=== PATIENT | female | born 2000 | race Caucasian/White ===

== ENCOUNTER 2018-09-05 21:47 | Emergency (ER) | payer BC ==
[2018-09-05] MEDS ORDERED: ONDANSETRON 4 MG/2 ML VIAL IVP ONE (22:41)
[2018-09-05] MEDS ORDERED: NS 1,000 ML IV ONE ×2 (22:41→23:02)
--- NOTE | 2018-09-05 22:44 | EDPHY ---
H & P Stated Complaint: epigatric [id number] Time Seen by Provider: 09/05/18 22:43 HPI/ROS: HPI CHIEF COMPLAINT: Nausea vomiting. HISTORY OF PRESENT ILLNESS: Patient is a 18-year-old female presents to the emergency room by private vehicle for nausea vomiting. Patient states she has been vomiting continuously for the past 2 days. She states this started after drinking large amount of alcohol 6 alcoholic beverages 2 days ago and started having nausea vomiting and the symptoms have persisted. Denies any significant pain. Does have some mild epigastric discomfort. Denies chest pain or shortness of breath. Denies headache or neck pain. Denies fever. Denies diarrhea or bloody stools. Denies black tarry stools. Past Medical History: Diagonal disease. Past Surgical History: Denies significant surgical history Social History: [employer] student, denies drug use. Alcohol over the past 2 days. Family History: Noncontributory ROS REVIEW OF SYSTEMS: 10 Systems were reviewed and negative with the exception of the elements mentioned in the history of present illness. Exam Constitutional nontoxic no acute distress triage nursing summary reviewed, vital signs reviewed, awake/alert. Eyes normal conjunctivae and sclera, EOMI, PERRLA. HENT normal inspection, atraumatic, moist mucus membranes, no epistaxis, neck supple/ no meningismus, no raccoon eyes. Respiratory clear to auscultation bilaterally, normal breath sounds, no respiratory distress, no wheezing. Cardiovascular rate normal, regular rhythm, no murmur, no edema, distal pulses normal. Gastrointestinal soft, non-tender, no rebound, no guarding, normal bowel sounds, no distension, no pulsatile mass. Genitourinary no CVA tenderness. Musculoskeletal no midline vertebral tenderness, full range of motion, no calf swelling, no tenderness of extremities, no meningismus, good pulses, neurovascularly intact. Skin pink, warm, & dry, no rash, skin atraumatic. Neurologic awake, alert and oriented x 3, AAOx3, moves all 4 extremities equally, motor intact, sensory intact, CN II-XII intact, normal cerebellar, normal vision, normal speech. Psychiatric normal mood/affect. Heme/Lymph/Immune no lymphadenopathy. Differential Diagnosis: Differential diagnosis includes but is not limited to and in no particular order: Bowel obstruction, appendicitis, gallbladder disease, diverticulitis, colitis, enteritis, perforated viscus, gastritis, GERD , esophagitis, urinary tract infection, pyelonephritis, kidney stones Medical Decision Making: Plan for this patient IV establishment with IV fluid bolus, IV Zofran for nausea, IV Pepcid 20 mg for GI upset, basic labs and re- evaluate. Re-evaluation: 0404: Patient re-examined at this time. Feeling much better after IV fluids nausea medicine and Pepcid. She was able to p. O. Challenge without any difficulty. On re-examination her abdomen is soft nontender. She is not vomiting. She p.o. Challenge well. Ultrasound reviewed of the right upper quadrant this was faxed to me by [facility] at 1:00 a.m.. This shows a pattern megaly without intrahepatic biliary duct dilatation or focal mass. Portal vein is patent with better pedal flow unremarkable right upper quadrant ultrasound otherwise. No gallstones. No wall thickening. No pericholecystic fluid. I went over the patient's ultrasound and lab work with her. I also discussed return precautions with her return emergency room if worsening abdominal pain, fever, vomiting. Additionally I do recommend she follows up with Gastroenterology about her elevated bilirubin, and hepatomegaly Seen on ultrasound. She is comfortable this plan. Additionally she understands return emergency room she develops worsening abdominal pain, fever, vomiting Patient also reports to me that she has Gilbert's Disease. This explains her elevated bilirubin. Pattern mainly seen on ultrasound do recommend she follows up with Gastroenterology. This been discussed with her. Source: Patient - Personal History LMP (Females 10-55): IUD In Place Current Tetanus Diphtheria and Acellular Pertussis (TDAP): Yes - Medical/Surgical History Hx Asthma: No Hx Chronic Respiratory Disease: No Hx Diabetes: No Hx Cardiac Disease: No Hx Renal Disease: No Hx Cirrhosis: No Hx Alcoholism: No Hx HIV/AIDS: No Hx Splenectomy or Spleen Trauma: No Other PMH: denies - Social History Smoking Status: Never smoked Constitutional: Initial Vital Signs Temperature (C) 37.1 C 09/05/18 22:03 Heart Rate 100 09/05/18 22:03 Respiratory Rate 18 09/05/18 22:03 Blood Pressure 125/86 H 09/05/18 22:03 O2 Sat (%) 99 09/05/18 22:03 O2 Delivery Mode Room Air Allergies/Adverse Reactions: No Known Allergies Allergy (Unverified 09/05/18 22:03) Home Medications: Medication Instructions Recorded Promethazine HCl 25 mg PO Q6-8PRN PRN #10 tablet 09/05/18 Medical Decision Making - Data Points Laboratory Results: Laboratory Results 09/05/18 22:40 09/05/18 22:40 09/06/18 09/06/18 09/06/18 01:37 00:30 00:30 WBC RBC Hgb Hct MCV MCH MCHC RDW Plt Count MPV Neut % (Auto) Lymph % (Auto) [place] % (Auto) Eos % (Auto) Baso % (Auto) Nucleat RBC Rel Count Absolute Neuts (auto) Absolute Lymphs (auto) Absolute Monos (auto) Absolute Eos (auto) Absolute Basos (auto) Absolute Nucleated RBC Immature Gran % Immature Gran # Sodium Potassium Chloride Carbon Dioxide Anion Gap BUN Creatinine Estimated GFR Glucose Calcium Total Bilirubin Conjugated Bilirubin Unconjugated Bilirubin AST ALT Alkaline Phosphatase Total Protein Albumin Lipase Beta HCG, Qual Urine Color YELLOW YELLOW Urine Appearance HAZY MODERATELY TURBID Urine pH 6.0 7.0 (5.0-7.5) (5.0-7.5) Ur Specific [place] 1.020 1.026 (1.002-1.030) (1.002-1.030) Urine Protein NEGATIVE 1+ H (NEGATIVE) (NEGATIVE) Urine Ketones 2+ H 2+ H (NEGATIVE) (NEGATIVE) Urine Blood NEGATIVE NEGATIVE (NEGATIVE) (NEGATIVE) Urine Nitrate NEGATIVE NEGATIVE (NEGATIVE) (NEGATIVE) Urine Bilirubin NEGATIVE NEGATIVE (NEGATIVE) (NEGATIVE) Urine Urobilinogen NEGATIVE EU EU NEGATIVE EU EU (0.2-1.0) (0.2-1.0) Ur Leukocyte Esterase NEGATIVE TRACE H (NEGATIVE) (NEGATIVE) Urine RBC 3-5 /hpf H /hpf (0-3) Urine WBC 5-10 /hpf H /hpf (0-3) Ur Epithelial Cells 4+ /lpf H /lpf (NONE-1+) Urine Bacteria TRACE /hpf H /hpf (NONE SEEN) Urine Mucus 4+ /lpf H /lpf (NONE-1+) Urine Glucose NEGATIVE NEGATIVE (NEGATIVE) (NEGATIVE) Urine Opiates Screen NEGATIVE (NEGATIVE) Urine Barbiturates NEGATIVE (NEGATIVE) Ur Phencyclidine Scrn NEGATIVE (NEGATIVE) Ur Amphetamine Screen NEGATIVE (NEGATIVE) U Benzodiazepines Scrn NEGATIVE (NEGATIVE) Urine Cocaine Screen NEGATIVE (NEGATIVE) U Marijuana (THC) Screen NON-NEGATIVE H (NEGATIVE) 09/05/18 09/05/18 09/05/18 22:40 22:40 22:40 WBC 12.92 10^3/uL H 10^3/uL (3.80-9.50) RBC 4.72 10^6/uL 10^6/uL (4.18-5.33) Hgb 14.8 g/dL g/dL (12.6-16.3) Hct 42.5 % % (38.0-47.0) MCV 90.0 fL fL (81.5-99.8) MCH 31.4 pg pg (27.9-34.1) MCHC 34.8 g/dL g/dL (32.4-36.7) RDW 12.1 % % (11.5-15.2) Plt Count 355 10^3/uL 10^3/uL (150-400) MPV 8.5 fL L fL (8.7-11.7) Neut % (Auto) 79.2 % H % (39.3-74.2) Lymph % (Auto) 14.7 % L % (15.0-45.0) [place] % (Auto) 5.3 % % (4.5-13.0) Eos % (Auto) 0.1 % L % (0.6-7.6) Baso % (Auto) 0.5 % % (0.3-1.7) Nucleat RBC Rel Count 0.0 % % (0.0-0.2) Absolute Neuts (auto) 10.22 10^3/uL H 10^3/uL (1.70-6.50) Absolute Lymphs (auto) 1.90 10^3/uL 10^3/uL (1.00-3.00) Absolute Monos (auto) 0.69 10^3/uL 10^3/uL (0.30-0.80) Absolute Eos (auto) 0.01 10^3/uL L 10^3/uL (0.03-0.40) Absolute Basos (auto) 0.07 10^3/uL 10^3/uL (0.02-0.10) Absolute Nucleated RBC 0.00 10^3/uL 10^3/uL (0-0.01) Immature Gran % 0.2 % % (0.0-1.1) Immature Gran # 0.03 10^3/uL 10^3/uL (0.00-0.10) Sodium 137 mEq/L mEq/L (135-145) Potassium 4.3 mEq/L mEq/L (3.5-5.2) Chloride 102 mEq/L mEq/L (97-110) Carbon Dioxide 22 mEq/l mEq/l (22-31) Anion Gap 13 mEq/L mEq/L (6-14) BUN 16 mg/dL mg/dL (7-23) Creatinine 0.6 mg/dL mg/dL (0.6-1.0) Estimated GFR > 60 Glucose 93 mg/dL mg/dL (70-100) Calcium 10.4 mg/dL mg/dL (8.5-10.4) Total Bilirubin 3.7 mg/dL H mg/dL (0.1-1.4) Conjugated Bilirubin 0.5 mg/dL mg/dL (0.0-0.5) Unconjugated Bilirubin 3.2 mg/dL H mg/dL (0.0-1.1) AST 29 IU/L IU/L (14-46) ALT 12 IU/L IU/L (9-52) Alkaline Phosphatase 66 IU/L IU/L (38-126) Total Protein 8.3 g/dL H g/dL (6.3-8.2) Albumin 5.2 g/dL H g/dL (3.5-5.0) Lipase 37 IU/L IU/L (23-300) Beta HCG, Qual NEGATIVE Urine Color Urine Appearance Urine pH Ur Specific [place] Urine Protein Urine Ketones Urine Blood Urine Nitrate Urine Bilirubin Urine Urobilinogen Ur Leukocyte Esterase Urine RBC Urine WBC Ur Epithelial Cells Urine Bacteria Urine Mucus Urine Glucose Urine Opiates Screen Urine Barbiturates Ur Phencyclidine Scrn Ur Amphetamine Screen U Benzodiazepines Scrn Urine Cocaine Screen U Marijuana (THC) Screen Medications Given: Discontinued Medications Famotidine (Pepcid) 20 mg IVP EDNOW ONE Stop: 09/05/18 22:50 Last Admin: 09/05/18 23:22 Dose: 20 mg Sodium Chloride (Ns) 1,000 mls @ 0 mls/hr IV ONCE ONE; Wide Open PRN Reason: Protocol Stop: 09/05/18 22:42 Last Admin: 09/05/18 22:46 Dose: 1,000 mls Sodium Chloride (Ns) 1,000 mls @ 0 mls/hr IV ONCE ONE PRN Reason: Wide Open Stop: 09/05/18 23:03 Last Admin: 09/05/18 23:22 Dose: 1,000 mls Sodium Chloride (Ns) 1,000 mls @ 0 mls/hr IV ONCE ONE PRN Reason: Wide Open Stop: 09/06/18 00:26 Last Admin: 09/06/18 00:33 Dose: 1,000 mls Ondansetron HCl (Zofran) 4 mg IVP EDNOW ONE Stop: 09/05/18 22:42 Last Admin: 09/05/18 22:46 Dose: 4 mg Departure - Departure Disposition: Home, Routine, Self-Care Clinical Impression: Gastritis Qualifiers: Gastritis type: unspecified gastritis Chronicity: acute Gastritis bleeding: without bleeding Qualified Code(s): K29.00 - Acute gastritis without bleeding Vomiting Qualifiers: Vomiting type: unspecified Vomiting Intractability: non-intractable Nausea presence: with nausea Qualified Code(s): R11.2 - Nausea with vomiting, unspecified Condition: Good Instructions: Dehydration (ED), Acute Nausea and Vomiting (ED) Additional Instructions: 1. [place] diet over the next 72 hr. 2. Do not drink alcohol. No spicy fatty greasy foods. 3. Return to the emergency room if worsening symptoms includes worsening abdominal pain, fever, vomiting. Referrals: MAXIMILIANO NAVARRETE [Other] - As per Instructions Jony Guan MD [Medical Doctor] - As per Instructions Prescriptions: Promethazine HCl 25 mg PO Q6-8PRN PRN #10 tablet PRN Reason: Nausea/Vomiting, Use 1st
[2018-09-05] MEDS ORDERED: FAMOTIDINE 20 MG/2 ML SDV IVP ONE (22:49)
[2018-09-05 22:50] LABS: PLATELET COUNT 355 10^3/uL (150-400)
[2018-09-06] MEDS ORDERED: NS 1,000 ML IV ONE (00:25)
[2018-09-06 04:26] VITALS: BP 113/82
== END 2018-09-06 04:25 | disposition home or self-care (01) ==
DX: K29.00 Acute gastritis without bleeding (principal); E80.4 Gilbert syndrome; F10.10 Alcohol abuse, uncomplicated; E86.9 Volume depletion, unspecified
CPT/HCPCS: 80305; 96374; J2405